=== PATIENT | female | born 1995 | race Two or more races ===

== ENCOUNTER 2017-07-09 16:26 | Emergency (ER) | payer OTHER ==
[~2017-07-09] VITALS: Ht 157.5 cm; Wt 72.6 kg
[~2017-07-09 16:26] MED LIST: CRYSELLE1 TAB
[2017-07-10] MEDS ORDERED: MONISTAT 31 EACH VAG (01:55)
[2017-07-10] MEDS ORDERED: BACTRIM 400-801 EACH PO (01:55)
[2017-07-10] MEDS ORDERED: KETO10TA2 PO (01:55)
== END 2017-07-10 02:13 | disposition home or self-care (01) ==
LOC: ER 16:26
DX: N39.0 Urinary tract infection, site not specified (principal); N83.291 Other ovarian cyst, right side; R10.2 Pelvic and perineal pain

== ENCOUNTER 2023-05-06 11:46 | Emergency (ER) | payer OTHER ==
[~2023-05-06] VITALS: Ht 157.5 cm; Wt 66.7 kg
[~2023-05-06 11:46] MED LIST changes: +BACTRIM 400-801 EACH PO; +KETO10TA2 PO; +MONISTAT 31 EACH VAG
[2023-05-06] MEDS ORDERED: PRENATAL + DHA1 EACH PO (12:17)
== END 2023-05-06 16:44 | disposition home or self-care (01) ==
LOC: ER 11:47
DX: O20.9 Hemorrhage in early pregnancy, unspecified (principal); Z3A.09 9 weeks gestation of pregnancy

== ENCOUNTER 2023-05-31 13:52 | Outpatient (CLI) | payer OTHER ==
[~2023-05-31 13:52] MED LIST changes: +PRENATAL + DHA1 EACH PO
== END 2023-05-31 13:59 | disposition home or self-care (01) ==
LOC: PRENATAL 13:52
PROVIDERS: ATTEND Obstetrics & Gynecology Maternal & Fetal Medicine
DX: O36.80X0 Pregnancy with inconclusive fetal viability, not applicable or unspecified (principal); Z36.82 Encounter for antenatal screening for nuchal translucency; Z3A.12 12 weeks gestation of pregnancy

== ENCOUNTER → 2023-07-26 14:43 | Outpatient (CLI) | payer OTHER | END | disposition home or self-care (01) | LOC: PRENATAL 14:43 | PROVIDERS: ATTEND Obstetrics & Gynecology Maternal & Fetal Medicine | DX: O35.9XX0 Maternal care for (suspected) fetal abnormality and damage, unspecified, not applicable or unspecified (principal); O35.3XX0 Maternal care for (suspected) damage to fetus from viral disease in mother, not applicable or unspecified; O44.00 Complete placenta previa NOS or without hemorrhage, unspecified trimester; Z3A.20 20 weeks gestation of pregnancy ==

== ENCOUNTER → 2023-10-20 11:55 | Outpatient (CLI) | payer OTHER | END | disposition home or self-care (01) | LOC: PRENATAL 11:55 | PROVIDERS: ATTEND Obstetrics & Gynecology Maternal & Fetal Medicine | DX: O26.843 Uterine size-date discrepancy, third trimester (principal); O36.8130 Decreased fetal movements, third trimester, not applicable or unspecified; O43.93 Unspecified placental disorder, third trimester; O24.419 Gestational diabetes mellitus in pregnancy, unspecified control; Z3A.32 32 weeks gestation of pregnancy ==

== ENCOUNTER → 2023-11-17 10:37 | Outpatient (CLI) | payer OTHER | END | disposition home or self-care (01) | LOC: PRENATAL 10:37 | PROVIDERS: ATTEND Obstetrics & Gynecology Maternal & Fetal Medicine | DX: O26.843 Uterine size-date discrepancy, third trimester (principal); O24.419 Gestational diabetes mellitus in pregnancy, unspecified control; O36.8130 Decreased fetal movements, third trimester, not applicable or unspecified; O43.893 Other placental disorders, third trimester; Z3A.36 36 weeks gestation of pregnancy; Z87.51 Personal history of pre-term labor ==